=== PATIENT | female | born 1985 | race Caucasian/White ===

== ENCOUNTER 2018-07-05 12:57 | Inpatient (IN) | payer BC ==
[2018-07-05 13:28] VITALS: BMI 35.4
[2018-07-05] MEDS ORDERED: hydrALAZINE 20 MG/ML VIAL ONE (13:37)
[2018-07-05 13:47] LABS: #Eosinphils 0.1 thou/uL (0.0-0.7); #Lymphocytes 1.4 thou/uL (1.20-3.40); #Monocytes 0.3 thou/uL (0.11-0.59); #Neutrophils 5.2 thou/uL (1.40-6.50); %Basophils 0.2 % (0.0-1.0); %Lymphocytes 20.7 % (21.0-51.0); %Neutrophils 74.2 % (42.0-75.0); Hemoglobin 13.3 g/dL (12.0-16.0); Mean Corpuscular HGB CONC 34.7 g/dL (32.0-36.0); Mean Corpuscular Hemoglobin 31.1 pg (27.0-31.0); Mean Corpuscular Volume 89.5 fL (78.0-98.0); Mean Platelet Volume 9.9 fL (7.4-10.4); Platelet Count 158 thou/uL (130-400); RBC Distribution Width 12.8 % (11.5-14.5); Red Blood Cell (RBC) Count 4.27 mill/uL (4.20-5.40)
[2018-07-05] MEDS ORDERED: Ondansetron PF 4 MG/2 ML Vial IVP PRN (13:53)
[2018-07-05] MEDS ORDERED: Promethazine HCl 25 MG/ML VIAL IM PRN (13:53)
[2018-07-05] MEDS ORDERED: hydrALAZINE 20 MG/ML VIAL SLOW IVP SCH ×2 (14:00→15:00)
[2018-07-05 14:03] LABS: Uric Acid 8.5 mg/dL (2.6-6.0)
[2018-07-05 14:20] LABS: Creatinine, Urine 72.19 mg/dL (47-110)
[2018-07-05] MEDS ORDERED: Magnesium Sulfate 20 gm/500 ml 20 GM/500 ML BAG ONE (16:00)
[2018-07-05] MEDS ORDERED: Labetalol HCl 100 MG/20 ML VIAL ONE ×2 (16:43→16:47)
[2018-07-05] MEDS ORDERED: Labetalol HCl 100 MG/20 ML VIAL SLOW IVP SCH (18:15)
[2018-07-05] MEDS ORDERED: hydrALAZINE 20 MG/ML VIAL SLOW IVP PRN (18:51)
[2018-07-05] MEDS ORDERED: Labetalol 100 MG TAB PO SCH (20:00)
[2018-07-06] MEDS ORDERED: Magnesium Sulfate 20 gm/500 ml 20 GM/500 ML BAG ONE ×2 (00:25→11:56)
[2018-07-06 06:13] LABS: #Lymphocytes 1.1 thou/uL (1.20-3.40); #Monocytes 0.2 thou/uL (0.11-0.59); #Neutrophils 8.3 thou/uL (1.40-6.50); %Basophils 0.2 % (0.0-1.0); %Eosinophils 0.3 % (0.0-10.0); %Lymphocytes 11.3 % (21.0-51.0); %Monocytes 1.6 % (0.0-10.0); %Neutrophils 86.6 % (42.0-75.0); Hemoglobin 13.1 g/dL (12.0-16.0); Mean Corpuscular HGB CONC 34.8 g/dL (32.0-36.0); Mean Corpuscular Hemoglobin 31.2 pg (27.0-31.0); Mean Corpuscular Volume 89.8 fL (78.0-98.0); Mean Platelet Volume 10.3 fL (7.4-10.4); Platelet Count 159 thou/uL (130-400); Red Blood Cell (RBC) Count 4.19 mill/uL (4.20-5.40); White Blood Cell (WBC) Count 9.6 thou/uL (4.8-10.8)
[2018-07-06 06:50] LABS: HIV (1/2) Antibody/Antigen Non-Reactive (NonReactive); HIV 1/2 INDEX 0.06 S/CO (<1.00); Syphilis Antibody Nonreactive (Nonreactive); Syphilis Antibody Index 0.02 S/CO (<1.00 Non-Reactive)
[2018-07-06] MEDS ORDERED: Betamet Acet/Betamet Na Ph 30 MG/5 ML VIAL IM SCH (12:00)
[2018-07-06] MEDS: Labetalol 100 MG TAB PO SCH ×3 (12:03→19:59)
[2018-07-06] MEDS ORDERED: Magnesium Sulfate 20 gm/500 ml 20 GM/500 ML BAG IVPB SCH (14:00)
[2018-07-06] MEDS ORDERED: Ondansetron PF 4 MG/2 ML Vial ONE ×2 (15:03→16:08)
[2018-07-06] MEDS ORDERED: Fentanyl 100 MCG/2 ML VIAL ONE (16:07)
[2018-07-06] MEDS ORDERED: MORPHINE 5 MG/10 ML PF VIAL ONE (16:08)
[2018-07-06] MEDS ORDERED: ePHEDrine/0.9% NaCl/PF SYRINGE 50 mg/10 ml ONE (16:08)
[2018-07-06] MEDS ORDERED: PHENYLEPHRINE-NS 100 MCG/ML 10 ML SYRINGE ONE (16:08)
[2018-07-06] MEDS ORDERED: Oxytocin 10 UNITS/ML VIAL ONE (16:09)
[2018-07-06] MEDS ORDERED: Promethazine HCl 25 MG SUPP PR PRN (16:12)
[2018-07-06] MEDS ORDERED: diphenhydrAMINE 50 MG/ML VIAL IVP PRN (16:12)
[2018-07-06] MEDS ORDERED: Meperidine HCl/PF 25 MG/ML VIAL SLOW IVP PRN (16:12)
[2018-07-06] MEDS ORDERED: Ondansetron HCl/PF 4 MG/2 ML Vial IVP PRN (16:12)
[2018-07-06] MEDS ORDERED: Naloxone HCl 0.4 mg/ml Vial IVP PRN ×2 (16:12)
[2018-07-06] MEDS ORDERED: Eucerin (Mineral Oil/Petrolatum,White) 30 gm Jar TOP PRN (16:12)
[2018-07-06] MEDS ORDERED: HYDROmorphone 2 MG/ML VIAL SLOW IVP PRN (16:12)
[2018-07-06] MEDS ORDERED: Naloxone HCl 0.4 mg/ml Vial IV PRN (16:12)
[2018-07-06] MEDS ORDERED: L&D-Morphine 4 MG/ML VIAL SLOW IVP PRN (16:12)
[2018-07-06] MEDS ORDERED: Ondansetron PF 4 MG/2 ML Vial IVP PRN ×2 (16:12→18:02)
[2018-07-06] MEDS ORDERED: Promethazine HCl 25 MG/ML VIAL IM PRN (16:12)
[2018-07-06] MEDS ORDERED: Ketorolac Tromethamine 30 MG/ML VIAL IVP SCH (16:15)
[2018-07-06] MEDS ORDERED: Communication Order-Pharmacy FS SCH (16:15)
[2018-07-06 16:53] LABS: Actual Bicarbonate (HCO3a) 24.4 mEq/L (22-28); Base Excess (BEa) -1.6 mEq/L (-2.0 to +3.0)
[2018-07-06] MEDS ORDERED: Misoprostol 200 MCG TAB PR PRN (18:02)
[2018-07-06] MEDS ORDERED: Bisacodyl 10 MG SUPP PR PRN (18:02)
[2018-07-06] MEDS ORDERED: Zolpidem Tartrate 5 MG TAB PO PRN (18:02)
[2018-07-06] MEDS ORDERED: Simethicone Chewable 80 MG TAB PO PRN (18:02)
[2018-07-06] MEDS ORDERED: Acetaminophen 325 MG TAB PO PRN (18:02)
[2018-07-06] MEDS ORDERED: diphenhydrAMINE 25 MG CAP PO PRN (18:02)
[2018-07-06] MEDS ORDERED: Lanolin Ointment 7 GM TUBE TOP PRN (18:02)
[2018-07-06] MEDS ORDERED: NS / Oxytocin 40 units/1000ml 1,000 ML IV SCH (18:15)
[2018-07-06] MEDS ORDERED: Lactated Ringer's 1,000 ML IV SCH (18:15)
[2018-07-06] MEDS ORDERED: Ketorolac Tromethamine 30 MG/ML VIAL ONE (18:47)
[2018-07-06] MEDS: Ketorolac Tromethamine 30 MG/ML VIAL IVP PRN (19:03)
[2018-07-06] MEDS ORDERED: Meperidine HCl/PF 25 MG/ML VIAL ONE (19:49)
[2018-07-06] MEDS: Lactated Ringer's 1,000 ML IV SCH ×2 (19:54→19:55)
[2018-07-07] MEDS ORDERED: Ketorolac Tromethamine 30 MG/ML VIAL ONE (02:49)
[2018-07-07] MEDS: Ketorolac Tromethamine 30 MG/ML VIAL IVP PRN (02:52)
[2018-07-07] MEDS ORDERED: Acetaminophen/Codeine 30-300mg Tablet PO PRN (04:15)
[2018-07-07] MEDS ORDERED: Meperidine HCl/PF 25 MG/ML VIAL IM PRN (04:15)
[2018-07-07] MEDS: Labetalol 100 MG TAB PO SCH (04:18)
[2018-07-07] MEDS ORDERED: Adacel (T-DAP) 0.5 ML SYRINGE IM ONE (09:00)
[2018-07-07 09:30] LABS: Band 10 % (5-11); Hemoglobin 11.5 g/dL (12.0-16.0); Lymphocytes 14 % (21-51); MDiff Complete? YES; Mean Corpuscular HGB CONC 34.3 g/dL (32.0-36.0); Mean Corpuscular Hemoglobin 31.5 pg (27.0-31.0); Mean Corpuscular Volume 91.9 fL (78.0-98.0); Metamyelocyte 1 % (0-0); Monocytes 5 % (0-10); Myelocyte 1 % (0-0); Neutrophil 69 % (42-75); Platelet Count 154 thou/uL (130-400); Platelet Morphology Comment Appears Adequate; Polychromasia SLIGHT = 2-3 cells (100X) (0-2/hpf); RBC Distribution Width 13.2 % (11.5-14.5); Red Blood Cell (RBC) Count 3.63 mill/uL (4.20-5.40); White Blood Cell (WBC) Count 11.7 thou/uL (4.8-10.8)
[2018-07-07] MEDS: Ferrous Sulfate 325 MG TAB PO SCH ×2 (09:44→16:59)
[2018-07-07] MEDS: Prenatal Vitamin 1 TAB PO SCH (10:47)
[2018-07-07] MEDS: Docusate Calcium (SURFAK) 240 MG CAP PO SCH ×3 (10:47→22:07)
[2018-07-07] MEDS: Acetaminophen/Codeine 30-300mg Tablet PO PRN ×3 (10:55→22:01)
[2018-07-07] MEDS: Ibuprofen 800 MG TAB PO SCH ×2 (12:57→21:57)
[2018-07-07] MEDS ORDERED: Labetalol 100 MG TAB PO SCH (21:00)
[2018-07-08] MEDS: Acetaminophen/Codeine 30-300mg Tablet PO PRN ×3 (04:18→21:51)
[2018-07-08] MEDS: Ibuprofen 800 MG TAB PO SCH ×3 (05:39→21:50)
[2018-07-08] MEDS: Ferrous Sulfate 325 MG TAB PO SCH ×2 (07:53→17:08)
[2018-07-08] MEDS: Labetalol 100 MG TAB PO SCH ×3 (08:01→21:50)
[2018-07-08] MEDS: Docusate Calcium (SURFAK) 240 MG CAP PO SCH ×2 (08:01→21:49)
[2018-07-08] MEDS: Prenatal Vitamin 1 TAB PO SCH (08:01)
[2018-07-08] MEDS: Hydrochlorothiazide 25 MG TAB PO SCH (08:02)
[2018-07-09] MEDS: Ibuprofen 800 MG TAB PO SCH ×3 (05:19→21:11)
[2018-07-09] MEDS: Hydrochlorothiazide 25 MG TAB PO SCH (05:40)
[2018-07-09] MEDS: Labetalol 100 MG TAB PO SCH ×2 (05:40→15:08)
[2018-07-09] MEDS ORDERED: Labetalol 100 MG TAB PO SCH ×2 (07:15→21:00)
[2018-07-09] MEDS: Ferrous Sulfate 325 MG TAB PO SCH ×2 (08:37→15:54)
[2018-07-09] MEDS: Docusate Calcium (SURFAK) 240 MG CAP PO SCH ×2 (09:33→21:11)
[2018-07-09] MEDS: Prenatal Vitamin 1 TAB PO SCH (09:33)
[2018-07-10 01:30] VITALS: TEMP 98
[2018-07-10] MEDS: Ibuprofen 800 MG TAB PO SCH ×2 (07:08→13:21)
[2018-07-10] MEDS: Ferrous Sulfate 325 MG TAB PO SCH (08:31)
[2018-07-10] MEDS: Hydrochlorothiazide 25 MG TAB PO SCH (09:33)
[2018-07-10] MEDS: Labetalol 100 MG TAB PO SCH ×2 (09:33→15:11)
[2018-07-10] MEDS: Docusate Calcium (SURFAK) 240 MG CAP PO SCH (09:33)
[2018-07-10] MEDS: Prenatal Vitamin 1 TAB PO SCH (09:33)
[2018-07-10 15:13] VITALS: BP 138/86
--- NOTE | 2018-07-10 16:08 | OP ---
DATE OF PROCEDURE: 07/06/2018 CO-SURGEON: Dr. Kathie Whyte. JOB PRINTER: Dr. Joseph Huffman PREOPERATIVE DIAGNOSES: 1. Intrauterine at 34 and 2/7th weeks. 2. Severe preeclampsia. 3. Small for gestational age. 4. Remote from delivery. POSTOPERATIVE DIAGNOSES: 1. Intrauterine at 34 and 2/7th weeks. 2. Severe preeclampsia. 3. Small for gestational age. 4. Remote from delivery. PROCEDURE PERFORMED: Primary low transverse section. ANESTHESIA: Spinal catheterization. FINDINGS: 1. Severe preeclampsia with criteria including blood pressure, proteinuria, headache, and borderline IUGR. 2. Viable female , 4 pounds 13 ounces, Apgars of 8 and 9. 3. Normal uterus, tubes, and ovaries. COMPLICATIONS: None. SPECIMENS REMOVED: Cord and blood gas. ESTIMATED BLOOD LOSS: 500 mL (QBL equals 410 mL). INDICATIONS: Mrs. Neil Osborn is a very pleasant 32-year-old white female G1, P0, who has followed my clinic for obstetric care. The patient had gestational hypertension and was placed on medications at the 20-week nigel. She continued to have labile blood pressures, but has been following her pressures very closely. She was initially on Aldomet 250 mg b.i.d. She presented to the office on 07/05/2018 with elevated pressures in the 180s/110s. In addition, she had proteinuria in the office. She was sent to Labor and Delivery for continued evaluation and monitoring. Her blood pressures continued to be significantly elevated in the 170s to 180s over 90s to 110s. Her protein-creatinine ratio was 0.68, and her uric acid was 8.6. She was started on magnesium sulfate for both seizure prophylaxis and neuro protection. After her second steroid dose in 24 hours, a decision was made to proceed with primary delivery secondary to a diagnosis of severe preeclampsia and baby being small for gestational age. The patient and her family were thoroughly consented and surgical disclosures were signed and placed in the chart. Questions answered to their satisfaction. Neonatology was made aware of the findings. DESCRIPTION OF PROCEDURE: After consent and counseling, Mrs. Osborn was taken to the operating room and adequate level of anesthesia was obtained via spinal catheterization. The patient was prepped and draped in usual fashion for abdominal surgery. A Menendez had previously been placed in the bladder, which was noted to be draining clear urine. A time-out was performed per protocol. Attention was then turned to performing the primary LTCS. Pfannenstiel incision was made, carried sharply to the fascia, which was also sharply incised. The midline was identified. The rectus muscles were retracted laterally. The abdominal peritoneal cavity was entered with usual safeguard carried out. A retractor was placed and a bladder flap was created on the vesicouterine peritoneum. A bladder blade was then placed. A low-transverse incision was made on the well-developed lower uterine segment. Upon entering the amniotic sac, there was a small amount of clear amniotic fluid noted. The was noted to be vertex presentation in the occiput transverse position, still high in the pelvis. Head was delivered and baby was bulb suctioned on the abdomen. Shoulders and body were then delivered in an atraumatic fashion. The cord doubly clamped and cut. The was handed to the neonatology team in attendance for the delivery. The infant was a viable female weighing 4 pounds 13 ounces with Apgars of 8 and 9 obtained at one and five minutes respectively. Cord and blood gases were obtained. The placenta was manually removed from the uterus and good tone was noted. The uterine cavity was cleared of remaining clot and fluid. The low-transverse incision was closed with a running locking ligature of #1 chromic. Secondary [id number] ligature of #1 chromic was placed to facilitate strength and hemostasis. The vesicouterine peritoneum was reapproximated to the lower segment with a running ligature of 2-0 Monocryl suture. The posterior cul-de-sac and gutters were cleared of clot and fluid. Seprafilm was applied to the low-transverse incision and to the anterior aspect of the uterus for adhesion prevention. The uterus was returned to the abdomen and good tone and hemostasis were appreciated. Laps and needle counts were correct. The peritoneum was closed with a running ligature of 2-0 Vicryl suture for additional adhesion prevention. The rectus muscles were reapproximated in the midline with interrupted ligatures of both 2-0 Vicryl and #1 chromic suture. The fascia was then closed with 2 ligatures of 0-Vicryl suture, which were tied in the midline. Good fascial integrity was appreciated. The incision was irrigated with copious amount of warm normal saline. The incision was irrigated with copious amount of warm normal saline. Good hemostasis was obtained with Bovie cauterization. The subcutaneous tissue was closed with interrupted ligatures of 2-0 plain suture. The skin was closed with a subcuticular suture of 4-0 Monocryl and dressed with Dermabond. Ice packs and pressure dressing were subsequently placed. Lap, sponge, needle counts correct x3. Estimated blood loss during the surgical procedure was approximately 500 mL. Obtained QBL postoperatively was 410 mL. The patient was taken to recovery room in good condition. The baby was taken to the Intensive Care Unit for monitoring and further care. Immediately following surgery, the patient and family were made aware of the surgical procedure and operative findings. Questions were answered to their satisfaction. Both mother and baby were doing well postoperatively. The patient and her family were very appreciative of the care rendered at [facility]. Ome to the Department of city auditor and dictation thank you very much. So, if you would need to change one thing so upon surgeons one would be Marcio Lugo to would be any deadly in an periodontal assistant surgeon would be been Bing and that she would do it. Thank you very much. Job ID: [id number]
== END 2018-07-10 15:45 | disposition home or self-care (01) | DRG 788 ==
LOC: L&D/OP 12:57 → L&D 07-06 01:16 → 3SW 07-07 10:13
PROVIDERS: ADMIT Obstetrics & Gynecology; ATTEND Obstetrics & Gynecology
PROC: 10D00Z1 Extraction of Products of Conception, Low, Open Approach (ICD-10-PCS; principal; 2018-07-10)
DX: O14.14 Severe pre-eclampsia complicating childbirth (principal); O13.4 Gestational [pregnancy-induced] hypertension without significant proteinuria, complicating childbirth; O36.5930 Maternal care for other known or suspected poor fetal growth, third trimester, not applicable or unspecified; Z3A.34 34 weeks gestation of pregnancy; Z37.0 Single live birth
CPT/HCPCS: 36415; 51702; 82570; 82805; 83615; 84156; 84450; 84460; 84550; 85025; 86780; 86850; 86900; 86901; 87389; 99285; J0360; J0690; J0702; J1885; J2175; J2270; J2405; J2590; J3010; J3475